=== PATIENT | male | born 1980 | race Caucasian/White ===

== ENCOUNTER 2017-06-25 10:30 | Emergency (ER) | payer MEDICAID ==
[2017-06-25] MEDS ORDERED: Lidocaine 1% 20 ML MDV INJECT ONE (10:48)
--- NOTE | 2017-06-25 11:15 | CR ---
Fingers Second Digit Lt F1 HISTORY: Injury. COMPARISON: None FINDINGS: There is a nail extending through the index finger at the level of the middle phalanx. This appears to course just below the middle phalanx. No cortically displaced fracture is seen.
[2017-06-25] MEDS ORDERED: Sodium Chloride 0.9% 10 ML Syringe FLUSH PRN (11:21)
[2017-06-25] MEDS ORDERED: cefTRIAXone 1 GM in Sodium Chloride 0.9% 50 ML IV ONE (11:21)
--- NOTE | 2017-06-25 11:56 | EDM.PDOC ---
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 this was very tight and had gone through the bone, Onset: Today Duration: Hour(s): Location: Reports: Upper Extremity, Left Associated Symptoms: Reports: No Other Symptoms, Other ( Pt is current with tetanus. ) - Related Data Allergies Allergy/AdvReac Type Severity Reaction Status Date / Time No Known Allergies Allergy Verified 06/25/17 10:50 Home Meds: Home Meds NK [No Known Home Meds] 06/25/17 [History] Past Medical History Musculoskeletal History: Reports: Fracture - Infectious Disease History Infectious Disease History: Reports: Chicken Pox - Past Surgical History GI Surgical History: Reports: Appendectomy Musculoskeletal Surgical History: Reports: Shoulder Surgery, Other (See Below) Other Musculoskeletal Surgeries/Procedures:: ankle Social & Family History - Tobacco Use Smoking Status *Q: Never Smoker - Recreational Drug Use Recreational Drug Use: No Review of Systems - Review of Systems Review Of Systems: See Below Constitutional: Reports: No Symptoms Eyes: Reports: No Symptoms Ears: Reports: No Symptoms Nose: Reports: No Symptoms Mouth/Throat: Reports: No Symptoms Respiratory: Reports: No Symptoms Cardiovascular: Reports: No Symptoms GI/Abdominal: Reports: No Symptoms Skin: Reports: Other ( Pt has a framing nail through the left second finger. ) Neurological: Reports: No Symptoms ED EXAM, GENERAL - Physical Exam Exam: See Below Free Text/Narrative:: pt was working today and he had a framing nail gothrough the second phalanx of his second left finger. Exam Limited By: No Limitations General Appearance: Alert, Mild Distress Ears: Normal TMs Extremities: Other ( left second finger hs a framing nail through it completely. ) Course - Vital Signs Last Recorded V/S: Last Vital Signs Temp 36.0 C 06/25/17 11:51 Pulse 67 06/25/17 11:51 Resp 18 06/25/17 11:51 BP 150/90 H 06/25/17 11:51 Pulse Ox 99 06/25/17 11:51 - Orders/Labs/Meds Orders: Active Orders 24 hr Category Date Time Status Saline Lock Insert [OM.PC] Routine Oth 06/25/17 11:21 Ordered Meds: Medications Discontinued Medications Generic Name Dose Route Start Last Admin Trade Name Fernandez PRN Reason Stop Dose Admin Bacitracin 1 dose 06/25/17 12:04 06/25/17 12:16 Bacitracin Oint 1 Gm TOP 06/25/17 12:05 1 dose ONETIME ONE Administration Ceftriaxone Sodium 1 gm/ 50 mls @ 100 mls/hr 06/25/17 11:21 06/25/17 11:44 Sodium Chloride IV 06/25/17 11:50 100 mls/hr ONETIME ONE Administration Lidocaine HCl 20 ml 06/25/17 10:48 06/25/17 11:28 Xylocaine 1% INJECT 06/25/17 10:49 20 ml ONETIME ONE Administration Sodium Chloride 10 ml 06/25/17 11:21 06/25/17 11:28 Saline Flush FLUSH 10 ml ASDIRECTED PRN Administration Keep Vein Open - Re-Assessments/Exams Free Text/Narrative Re-Assessment/Exam: 06/25/17 11:56 area was cleansed and infiltrated with lidocaine. With some difficulty the nail was pulled out. A post-removal xray was obtained. The xray looked good with very little disruption. He was given a gram of rocephn. 06/26/17 07:12 pt was found to have full range of motion of the finger. Departure - Departure Time of Disposition: 11:59 Disposition: Home, Self-Care 01 Condition: Fair Clinical Impression: Foreign body - Discharge Information Instructions: Puncture Wound, [id number] Referrals: PCP,None [Primary Care Provider] - Forms: ED Department Discharge Care Plan Goals: soak in dreft solution twice daily, augmentin 875 bid, norco 5/325 q6h prn for pain check with ortho in 4-5 days. Be seen immediately if redness or warmth develops. Send a disc with the pt. - My Orders Last 24 Hours: My Active Orders 06/25/17 11:21 Saline Lock Insert [OM.PC] Routine - Assessment/Plan Last 24 Hours: My Active Orders 06/25/17 11:21 Saline Lock Insert [OM.PC] Routine
[2017-06-25] MEDS ORDERED: Bacitracin Oint 1 GM U/D Packet TOP ONE (12:04)
--- NOTE | 2017-06-25 12:49 | CR ---
Fingers Second Digit Lt F1 HISTORY: Nail removal from index finger COMPARISON: Films earlier today FINDINGS: The nail has been removed from the index finger. No remaining foreign body. No fracture see n.
== END 2017-06-25 12:26 | disposition home or self-care (01) ==
LOC: JP.ED 10:30
DX: S60.451A Superficial foreign body of left index finger, initial encounter (principal); W45.0XXA Nail entering through skin, initial encounter
CPT/HCPCS: 73140; 96365; 99284; J0696; J7050; 10121